=== PATIENT | female | born 1985 | race Asian ===

== ENCOUNTER 2020-06-25 13:22 | Inpatient (IN) | payer MEDICAID, SELFPAY ==
[~2020-06-25] VITALS: Ht 165 cm; Wt 68.9 kg
[2020-06-25] MEDS: TERBUTALINE 1 MG/ML VIAL SUBQ SCH ×2 (13:48→14:50)
[2020-06-25] MEDS: LACTATED RINGERS 1,000 ML IV SCH ×2 (13:50→17:37)
[2020-06-25 14:01] VITALS: BP 101/64
[2020-06-25] MEDS ORDERED: NALBUPHINE 10 MG/ML AMP ONE (15:21)
[2020-06-25] MEDS ORDERED: BETAMETH ACET/BETAMETH NA PH 30 MG/5 ML VIAL IM SCH (15:41)
[2020-06-25] MEDS ORDERED: AMPICILLIN 2,000 MG in NACL 0.9% MINI-BAG PLUS 100 ML IV SCH (18:50)
[2020-06-25] MEDS ORDERED: ONDANSETRON 4 MG/2 ML VIAL IVP PRN (19:45)
[2020-06-25] MEDS ORDERED: AMPICILLIN 2,000 MG VIAL ONE (19:50)
[2020-06-25] MEDS ORDERED: ONDANSETRON 4 MG/2 ML VIAL ONE (19:51)
[2020-06-25 20:19] LABS: BASOPHILS % (AUTO) 0.2 % (0.0-2.0); HEMATOCRIT 31.6 % (36-48); HEMOGLOBIN 10.4 g/dL (12.0-16.0); LYMPHOCYTES # (AUTO) 0.9 K/uL (2.5-16.5); MEAN CORPUSCULAR HEMOGLOBIN 26 pg (27-31); MEAN CORPUSCULAR HGB CONC 33 g/dL (33-37); MEAN CORPUSCULAR VOLUME 78.4 fL (80-94); MONOCYTES # (AUTO) 0.2 K/uL (0.8-1.0); MONOCYTES % (AUTO) 1.3 % (1.7-9.3); NEUTROPHILS # (AUTO) 10.3 K/uL (1.8-7.7); NEUTROPHILS % (AUTO) 90.5 % (42.2-75.2); PLATELET COUNT (AUTO) 246 K/uL (140-450); RED BLOOD CELL COUNT(AUTO) 4.03 MIL/uL (4.20-5.40); RED CELL DISTRIBUTION WIDTH 14.6 % (11.6-13.7); WHITE BLOOD COUNT (AUTO) 11.4 K/uL (4.8-10.8)
[2020-06-25 20:31] LABS: APPEARANCE,URINE SL CLOUDY (CLEAR); BILIRUBIN,URINE NEGATIVE (NEGATIVE); BLOOD, URINE NEGATIVE (NEGATIVE); COLOR,URINE YELLOW (YELLOW); LEUKOCYTE ESTERASE ,URINE 1+ (NEGATIVE); NITRITE, URINE NEGATIVE (NEGATIVE); UGLUCOSE NEGATIVE (NEGATIVE)
[2020-06-25 20:41] LABS: ALBUMIN 2.8 g/dL (3.4-5.0); CREATININE 0.4 mg/dL (0.6-1.3); POTASSIUM 3.4 mmol/L (3.5-5.1); TOTAL BILIRUBIN 0.4 mg/dL (0.0-1.0)
[2020-06-25 20:51] LABS: ANION GAP 16.2 (8-16); CARBON DIOXIDE 20.2 mmol/L (21-32)
[2020-06-25 21:18] LABS: RBC,URINE 0-5 /HPF (0-5)
[2020-06-25] MEDS: NALBUPHINE 10 MG/ML AMP IVP PRN (21:35)
[2020-06-25] MEDS ORDERED: AMPICILLIN 1,000 MG VIAL ONE (23:46)
[2020-06-26] MEDS ORDERED: AMPICILLIN 1,000 MG in NACL 0.9% MINI-BAG PLUS 50 ML IV SCH ×2
[2020-06-26] MEDS: NALBUPHINE 10 MG/ML AMP IVP PRN ×2 (05:32→10:20)
[2020-06-26] MEDS ORDERED: BETAMETH ACET/BETAMETH NA PH 30 MG/5 ML VIAL IM SCH (08:36)
[2020-06-26] MEDS ORDERED: OXYTOCIN 20 UNITS in LACTATED RINGERS 1,000 ML IV SCH (08:40)
--- NOTE | 2020-06-26 09:58 | NUR ---
PATIENT HAS BEEN SCREENED AND CATEGORIZED LOW NUTRITION RISK. PATIENT WILL BE SEEN WITHIN 7 DAYS OF ADMISSION. 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
[2020-06-26] MEDS: LACTATED RINGERS 1,000 ML IV SCH ×2 (10:30→13:54)
[2020-06-26] MEDS ORDERED: OXYTOCIN 20 UNITS/LR PREMIX 1,000 ML IV ONE (11:17)
[2020-06-26] MEDS ORDERED: ROPIVACAINE 0.2%/NS PREMIX 200 ML EPI ONE (13:55)
[2020-06-26] MEDS ORDERED: oxyCODONE/APAP 5/325 MG 1 TAB TAB PO PRN (16:00)
[2020-06-26] MEDS ORDERED: TEMAZEPAM 15 MG CAP PO PRN (16:00)
[2020-06-26] MEDS ORDERED: BENZOCAINE/MENTHOL 20%-0.5% 60 GM CAN TP PRN (16:00)
[2020-06-26] MEDS ORDERED: SODIUM PHOSPHATE 118 ML ENEM RC PRN (16:00)
[2020-06-26] MEDS ORDERED: METHYLERGONOVINE 0.2 MG/ML AMP IM PRN (16:00)
[2020-06-26] MEDS ORDERED: METHYLERGONOVINE 0.2 MG TAB PO PRN (16:00)
[2020-06-26] MEDS ORDERED: OXYTOCIN 10 UNITS/ML VIAL IM PRN (16:00)
[2020-06-26] MEDS: IBUPROFEN 800 MG TAB PO PRN (17:05)
[2020-06-26] MEDS: HYDROcodone/APAP 5/325 MG 1 TAB TAB PO PRN (20:19)
[2020-06-26] MEDS ORDERED: DOCUSATE SOD/SENNA 50/8.6 MG 1 TAB PO SCH (21:00)
[2020-06-26] MEDS ORDERED: FLU VACCINE QS2020-21 0.5 ML SYR IMVAC PRN (21:45)
[2020-06-27] MEDS: IBUPROFEN 800 MG TAB PO PRN ×3 (04:24→19:54)
[2020-06-27 06:31] LABS: HEMATOCRIT 31.2 % (36-48); HEMOGLOBIN 10.1 g/dL (12.0-16.0)
[2020-06-27] MEDS: HYDROcodone/APAP 5/325 MG 1 TAB TAB PO PRN ×2 (07:21→12:08)
[2020-06-28] MEDS: HYDROcodone/APAP 5/325 MG 1 TAB TAB PO PRN (04:04)
[2020-06-28] MEDS: IBUPROFEN 800 MG TAB PO PRN (07:24)
== END 2020-06-28 12:15 | disposition home or self-care (01) | DRG 560 ==
LOC: OBSVTOIN 13:22 → INTOOBSV 13:22 → MLD 13:22 → MFCC 06-26 18:10
PROVIDERS: ADMIT Obstetrics & Gynecology; ATTEND Obstetrics & Gynecology
PROC: 10E0XZZ Delivery of Products of Conception, External Approach (ICD-10-PCS; principal; 2020-06-26)
PROC: 0HQ9XZZ Repair Perineum Skin, External Approach (ICD-10-PCS; 2020-06-26)
PROC: 3E0234Z Introduction of Serum, Toxoid and Vaccine into Muscle, Percutaneous Approach (ICD-10-PCS; 2020-06-27)
DX: O60.23X0 Term delivery with preterm labor, third trimester, not applicable or unspecified (principal); Z37.0 Single live birth; Z23 Encounter for immunization; Z20.822 Contact with and (suspected) exposure to COVID-19; Z3A.36 36 weeks gestation of pregnancy; O70.0 First degree perineal laceration during delivery
CPT/HCPCS: 36415; 51702; 59409; 80053; 81001; 85018; 85025; 86592; 86762; 86870; 86886; 86900; 86901; 87086; 87340; 87653-90; 90715; 93005; J0290; J0702; J2300; J2405; J2590; J2795; J3105; J7120